=== PATIENT | male | born 1960 | race Caucasian/White ===

== ENCOUNTER 2025-02-18 15:36 | Emergency (ER) | payer OTHER, SELFPAY ==
[2025-02-18] VITALS (13 sets, daily range): BP systolic 143–177; BP diastolic 85–109; PULSE 75–92; RESP 10–20; TEMP 36.7; O2SAT 94–98; BMI 27.3
--- NOTE | 2025-02-18 15:58 | DI.CT.S_ITS ---
PROCEDURE: CT ANGIO HEAD AND NECK INDICATIONS: sudden onset dizzy TECHNIQUE: After the administration of intravenous contrast, 1 mm thick sections acquired from the aortic arch through the [place] of [place]. 3-dimensional onllhih-mjaqfkgdd-gpffrwfgte (MIP) and/or volume rendering reformats were acquired of the central intracranial vasculature and neck separately. For radiation dose reduction, the following was used: automated exposure control, adjustment of mA and/or kV according to patient size. COMPARISON: [facility], CT, CT HEAD/BRAIN WO [facility], 02/18/2025, 16:16. FINDINGS: Image quality: Diagnostic. Cerebral CT Angiogram: Internal carotid arteries: No acute findings. Intracranial ICA are patent with no significant stenosis. No occlusion. No aneurysm. Anterior cerebral arteries: Unremarkable. No significant stenosis. No occlusion. No aneurysm. Middle cerebral arteries: Unremarkable. No significant stenosis. No occlusion. No aneurysm. Posterior cerebral arteries: Unremarkable. No significant stenosis. No occlusion. No aneurysm. Basilar artery: Unremarkable. No significant stenosis. No occlusion. No aneurysm. Vertebral arteries: Unremarkable as visualized. Slight right vertebral artery. Dural venous sinuses: Unremarkable given phase of enhancement. Other: Arterial phase appearance of the brain parenchyma is unremarkable. Neck CT Angiogram: Internal carotid arteries: Unremarkable. No significant stenosis. No dissection or occlusion. Common carotid arteries: Unremarkable. No significant stenosis. No dissection or occlusion. External carotid arteries: Unremarkable. No occlusion. Vertebral arteries: Unremarkable. No significant stenosis. No dissection or occlusion. Aortic Arch and Mediastinum: Partially visualized aortic arch unremarkable without evidence of aneurysm. Origins of the great vessels unremarkable. Other: Arterial phase soft tissues of the neck and chest are unremarkable. IMPRESSION: No significant intracranial arterial abnormality is seen. No significant abnormality is seen within the arteries of the neck. Any quantitative measurements of stenosis were performed using NASCET criteria. Dictated by: Sherrell Carney M.D. on 02/18/2025 at 16:53 Approved by: Sherrell Carney M.D. on 02/18/2025 at 16:54
--- NOTE | 2025-02-18 15:58 | DI.RAD.S_ITS ---
PROCEDURE: XR CHEST 1V INDICATIONS: Chest Pain TECHNIQUE: One view of the chest was acquired. COMPARISON: None. FINDINGS: Surgical changes and devices: None. Lungs and pleura: Lungs are clear. No pleural effusions or pneumothorax. Mediastinum: Mediastinal contours appear normal. Heart size is normal. Bones and chest wall: No suspicious bony lesions. Overlying soft tissues appear unremarkable. IMPRESSION: No acute pulmonary process. Dictated by: Sherrell Carney M.D. on 02/18/2025 at 16:48 Approved by: Sherrell Carney M.D. on 02/18/2025 at 16:48
--- NOTE | 2025-02-18 15:58 | DI.CT.S_ITS ---
PROCEDURE: CT HEAD/BRAIN WO CON INDICATIONS: sudden onset dizzy TECHNIQUE: Noncontrast 4.5 mm thick angled axial sections acquired from the foramen magnum to the vertex, with coronal and sagittal reformats. For radiation dose reduction, the following was used: automated exposure control, adjustment of mA and/or kV according to patient size. COMPARISON: [facility], CT, CT ANGIO HEAD AND NECK, 02/18/2025, 16:16. FINDINGS: Image quality: Diagnostic. CSF spaces: Basal cisterns are patent. No extra-axial fluid collections. Ventricles are normal in size and shape. Brain: No midline shift. No intracranial mass effect or hemorrhage. Gross- white matter interface is normal. Skull and face: Calvarium and visualized facial bones are intact, without suspicious lesions. Sinuses: Visualized sinuses and mastoids are clear. IMPRESSION: No acute intracranial pathology. Dictated by: Sherrell Carney M.D. on 02/18/2025 at 16:53 Approved by: Sherrell Carney M.D. on 02/18/2025 at 16:53
--- NOTE | 2025-02-18 15:58 | EKG_ITS ---
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
--- NOTE | 2025-02-18 16:12 | ED.NEUROSD ---
HPI - Neuro Symptoms/Deficit General Chief Complaint: Neuro Symptoms/Deficit Stated Complaint: Dizziness Time Seen by Provider: 02/18/25 15:46 Source: EMS Mode of arrival: EMS History of Present Illness HPI Narrative: 64-year-old gentleman history of CAD x1 stet, hx of occular stroke Sep 2024, hypertension, dyslipidemia, was at [place] taking photos at various points when he started to feel dizziness described as feeling off balance and tilted becoming nauseous breaking out in cold sweats and unable to drive or walk came in for further evaluation. Most of his symptoms have since resolved but he still has residual dizziness still described as tilted but not room sensation spinning. Denies headache, stiff, neck, rash, fever, body aches, sore throat, cough, chest pain, nausea, vomiting, diarrhea, UTI symptoms, or sick contacts. Other than what is stated 14 point review of system is negative. On Anticoagulants: No Related Data Allergies Allergy/AdvReac Type Severity Reaction Status Date / Time No Known Drug Allergies Allergy Verified 02/18/25 15:57 Review of Systems Review of Systems ROS Unobtainable: All systems reviewed & are unremarkable except as noted in HPI and below Hematologic/Lymphatic On Anticoagulants: No Patient History Social History Smoking Status: Never smoker Smoking Status: Never smoker Exam Narrative Exam Narrative: GENERAL: [64] year old patient appears stated age. Well-developed patient, in mild distress. HEAD: Atraumatic. Normocephalic. EYES: Pupils equal round and reactive. Extraocular motions intact. No scleral icterus. No injection or drainage. ENT: Nose without bleeding, purulent drainage. Throat without erythema, tonsillar hypertrophy or exudate. Airway patent. NECK: Trachea midline. Non tender CARDIOVASCULAR: Regular rate and rhythm without murmurs, gallops, or rubs. RESPIRATORY: Clear to auscultation. Breath sounds equal bilaterally. No wheezes, rales, or rhonchi. GASTROINTESTINAL: Abdomen soft, non-tender, nondistended. EXTREMITIES: No edema or joint tenderness. BACK: Nontender without deformity or crepitance. No flank tenderness. NEURO: AOx3. GCS 15 nonfocal neuro exam klwjee-az-tvsh opposite tzrb-fg-peiy rapid alternating movements negative pronator drift 5/5 upper and lower extremity SKIN: No rash or erythema of visible areas Initial Vital Signs Initial Vital Signs: Vital Signs Pulse Rate 86 02/18/25 15:49 Respiratory Rate 14 02/18/25 15:49 Blood Pressure 177/99 H 02/18/25 15:49 Pulse Oximetry 96 02/18/25 15:49 Oxygen Delivery Method Room Air 02/18/25 15:49 Course Orders Ordered: ED Orders 02/18/25 15:58 CT angio head and neck Stat CT head/brain wo con Stat XR chest 1V Stat EKG-12 Lead Stat 02/18/25 16:13 Complete Blood Count AUTO DIFF Stat Comprehensive Metabolic Panel Stat Lipase Stat Magnesium Stat NT-proBNP (BNP-Adult 18+) Stat PTT Partial Thromboplastin Armani Stat Prothrombin Time INR Stat Troponin & CK Cardiac Panel Stat 02/18/25 16:35 Urine Culture Stat Urine Microscopic Stat Discontinued Medications Aspirin (Aspirin 81 Mg Chew Tab) 324 mg PO NOW ONE Stop: 02/18/25 15:59 Vital Signs Vital signs: Vital Signs - 8 hr 02/18/25 15:49 02/18/25 16:02 02/18/25 16:04 Temperature 98.1 F Pulse Rate 86 Pulse Rate [Orthostatic Lying] 82 Pulse Rate [Orthostatic Sitting] 92 H Pulse Rate [Orthostatic Standing] 91 H Respiratory Rate 14 Blood Pressure 177/99 H Blood Pressure [Orthostatic Lying] 157/85 H Blood Pressure [Orthostatic Sitting] 165/102 H Blood Pressure [Orthostatic Standing] 153/98 H Pulse Oximetry 96 Oxygen Delivery Method Room Air MDM - Neuro Symptoms/Deficit Lab Data 02/18/25 16:13 02/18/25 16:13 Labs: Lab Results 02/18/25 02/18/25 Range/Units 16:13 16:35 WBC 12.3 H (4.5-11.0) X10^3/uL RBC 5.03 (4.5-5.9) X10^6/uL Hgb 15.9 (13.5-17.5) g/dL Hct 46.6 (41-53) % MCV 92.6 (80-100) fL MCH 31.6 (26-34) PG MCHC 34.1 (30-36) % RDW 13.3 (11.6-14.8) % Plt Count 152 (150-400) X10^3/uL Neut % (Auto) 84.2 H (50-75) % Lymph % (Auto) 9.7 L (25-40) % Hood % (Auto) 5.2 (3-14) % Eos % (Auto) 0.5 L (2-4) % Baso % (Auto) 0.4 (0-2) % Neut # (Auto) 92251 H (2702-5064) /uL Lymph # (Auto) 1200 (7283-2719) /uL Hood # (Auto) 600 (0-900) /uL Eos # (Auto) 100 (0-450) /uL Baso # (Auto) 0 (0-100) /uL PT 10.7 (9.4-12.5) SECONDS INR 0.9 (0.9-1.3) APTT 25 L (25.1-36.5) SECONDS Sodium 136 L (137-145) mmol/L Potassium 4.3 (3.4-5.1) mmol/L Chloride 102 (98-107) mmol/L Carbon Dioxide 25 (22-32) mmol/L BUN 20 (9-20) mg/dL Creatinine 0.97 (0.66-1.25) mg/dL Estimated GFR > 60 (>60) mL/min BUN/Creatinine Ratio 20.6 (6-22) Glucose 146 H (70-99) mg/dL Calcium 9.9 (8.4-10.2) mg/dL Magnesium 1.6 (1.6-2.3) mg/dL Total Bilirubin 0.8 (0.2-1.3) mg/dL AST 36 (17-59) IU/L ALT 40 (<50) IU/L Alkaline Phosphatase 66 (38-126) U/L Total Creatine Kinase 58 (55-170) U/L Troponin I < 0.012 (0.01-0.034) ng/mL NT-Pro-B Natriuret Pep 33 (<125) pg/mL Total Protein 7.3 (6.3-8.2) g/dL Albumin 4.5 (3.5-5.0) g/dL Globulin 2.8 (1.7-4.1) g/dL Albumin/Globulin Ratio 1.6 (1.0-2.8) Lipase 55 (23-300) U/L Urine RBC None seen (0-5/HPF) Urine WBC 0-1/hpf (0-5/HPF) Ur Squamous Epith Cells 0-1 /hpf (0-5/HPF) Urine Bacteria Occasional (0-1) (None) Vol Urine Centrifuged 10ml (spun) Urine Dip Bedside Urine Glucose Negative Bedside Urine Bilirubin - Negative Bedside Urine Ketone - Negative Urine Specific [place] 1.015 Bedside Urine Occult Blood - Negative Bedside Urine pH 6.0 Bedside Urine Protein ++ 100 Bedside Urine Urobilinogen - Negative Bedside Urine Nitrite - Negative Bedside Urine Leukocytes - Negative Esterase Imaging Data CT scan - head: Radiologist's Impression: [address] [address] [address] Scan Report Signed Patient: Montez Alexandra MR#: [id number] : 1960 Acct:[id number] Age/Sex: 64 / M Date of Service: 02/18/25 Loc: ED Accession Number: [id number] Procedure: CT head/brain wo con Ordering Provider: Franki Miramontes D.O. PROCEDURE: CT HEAD/BRAIN WO CON INDICATIONS: sudden onset dizzy TECHNIQUE: Noncontrast 4.5 mm thick angled axial sections acquired from the foramen magnum to the vertex, with coronal and sagittal reformats. For radiation dose reduction, the following was used: automated exposure control, adjustment of mA and/or kV according to patient size. COMPARISON: [facility], CT, CT ANGIO HEAD AND NECK, 02/18/2025, 16:16. FINDINGS: Image quality: Diagnostic. CSF spaces: Basal cisterns are patent. No extra-axial fluid collections. Ventricles are normal in size and shape. Brain: No midline shift. No intracranial mass effect or hemorrhage. Gross-white matter interface is normal. Skull and face: Calvarium and visualized facial bones are intact, without suspicious lesions. Sinuses: Visualized sinuses and mastoids are clear. IMPRESSION: No acute intracranial pathology. Dictated by: Sherrell Carney M.D. on 02/18/2025 at 16:53 Approved by: Sherrell Carney M.D. on 02/18/2025 at 16:53 Extremity x-ray #1: Radiologist's Impression: [address] [address] [address] Scan Report Signed Patient: Montez Alexandra MR#: [id number] : 1960 Acct:[id number] Age/Sex: 64 / M Date of Service: 02/18/25 Loc: ED Accession Number: [id number] Procedure: CT angio head and neck Ordering Provider: Franki Miramontes D.O. PROCEDURE: CT ANGIO HEAD AND NECK INDICATIONS: sudden onset dizzy TECHNIQUE: After the administration of intravenous contrast, 1 mm thick sections acquired from the aortic arch through the [place] of [place]. 3-dimensional ooxxcgx-pqiluotrm-brzzrcfjwh (MIP) and/or volume rendering reformats were acquired of the central intracranial vasculature and neck separately. For radiation dose reduction, the following was used: automated exposure control, adjustment of mA and/or kV according to patient size. COMPARISON: [facility], CT, CT HEAD/BRAIN WO CON, 02/18/2025, 16:16. FINDINGS: Image quality: Diagnostic. Cerebral CT Angiogram: Internal carotid arteries: No acute findings. Intracranial ICA are patent with no significant stenosis. No occlusion. No aneurysm. Anterior cerebral arteries: Unremarkable. No significant stenosis. No occlusion. No aneurysm. Middle cerebral arteries: Unremarkable. No significant stenosis. No occlusion. No aneurysm. Posterior cerebral arteries: Unremarkable. No significant stenosis. No occlusion. No aneurysm. Basilar artery: Unremarkable. No significant stenosis. No occlusion. No aneurysm. Vertebral arteries: Unremarkable as visualized. Slight right vertebral artery. Dural venous sinuses: Unremarkable given phase of enhancement. Other: Arterial phase appearance of the brain parenchyma is unremarkable. Neck CT Angiogram: Internal carotid arteries: Unremarkable. No significant stenosis. No dissection or occlusion. Common carotid arteries: Unremarkable. No significant stenosis. No dissection or occlusion. External carotid arteries: Unremarkable. No occlusion. Vertebral arteries: Unremarkable. No significant stenosis. No dissection or occlusion. Aortic Arch and Mediastinum: Partially visualized aortic arch unremarkable without evidence of aneurysm. Origins of the great vessels unremarkable. Other: Arterial phase soft tissues of the neck and chest are unremarkable. IMPRESSION: No significant intracranial arterial abnormality is seen. No significant abnormality is seen within the arteries of the neck. Any quantitative measurements of stenosis were performed using NASCET criteria. Chest x-ray: Radiologist's Impression: [address] [address] XRay Report Signed Patient: Montez Alexandra MR#: [id number] : 1960 Acct:[id number] Age/Sex: 64 / M Date of Service: 02/18/25 Loc: ED Accession Number: [id number] Procedure: XR chest 1V Ordering Provider: Franki Miramontes D.O. PROCEDURE: XR CHEST 1V INDICATIONS: Chest Pain TECHNIQUE: One view of the chest was acquired. COMPARISON: None. FINDINGS: Surgical changes and devices: None. Lungs and pleura: Lungs are clear. No pleural effusions or pneumothorax. Mediastinum: Mediastinal contours appear normal. Heart size is normal. Bones and chest wall: No suspicious bony lesions. Overlying soft tissues appear unremarkable. IMPRESSION: No acute pulmonary process. MDM Narrative Medical decision making narrative: All lab work, vital signs, nurse triage note, medication list, previous ER visits, and all imaging studies reviewed. White count at 12.3 hemoglobin 15 point platelet 152 sodium 136 glucose 146 troponin less than 0.012 BNP 33 urine was normal. Chest x-ray showed no acute process. CT head and CTA head and neck showed no acute process. GCS 15 nonfocal neuro exam alert and oriented x4. Patient feels improved on reexamination. Differential diagnosis includes CVA subdural subarachnoid hemorrhage brain and or aneurysm pneumonia sepsis dehydration electrolyte derangement STEMI NSTEMI Meniere's disease viral. Patient will follow up back in [place] his PCP as he is visiting from out of town. Discharge Plan Departure Patient Disposition: Home Clinical Impression: Dizziness Instructions: DI for Dizziness-Nonvertigo Activity Restrictions/Additional Instructions: Return with new or worsening symptoms. Follow up with PCP in [place] for follow up care. Stand Alone Forms: Patient Portal/API
[2025-02-18 16:19] LABS: Add Manual Diff / Slide Review NO; Basophils Absolute Auto 0 /uL (0-100); Basophils Percent Auto 0.4 % (0-2); Eosinophils Absolute Auto 100 /uL (0-450); Eosinophils Percent Auto 0.5 % (2-4); Hematocrit 46.6 % (41-53); Hemoglobin 15.9 g/dL (13.5-17.5); Lymphocytes Absolute Auto 1200 /uL (1100-4500); Lymphocytes Percent Auto 9.7 % (25-40); Mean Corpuscular HGB Conc 34.1 % (30-36); Mean Corpuscular Hemoglobin 31.6 PG (26-34); Mean Corpuscular Volume 92.6 fL (80-100); Monocytes Absolute Auto 600 /uL (0-900); Monocytes Percent Auto 5.2 % (3-14); Neutrophils Absolute Auto 10400 /uL (1500-7000); Neutrophils Percent Auto 84.2 % (50-75); Platelet Count 152 X10^3/uL (150-400); Red Blood Cell Count 5.03 X10^6/uL (4.5-5.9); Red Cell Distribution Width 13.3 % (11.6-14.8); White Blood Cell Count 12.3 X10^3/uL (4.5-11.0)
[2025-02-18 16:33] LABS: Alanine Aminotransferase 40 IU/L (<50); Albumin 4.5 g/dL (3.5-5.0); Albumin Globulin Ratio 1.6 (1.0-2.8); Alkaline Phosphatase 66 U/L (38-126); Aspartate Aminotransferase 36 IU/L (17-59); BUN Creatinine Ratio 20.6 (6-22); Bilirubin Total 0.8 mg/dL (0.2-1.3); Blood Urea Nitrogen 20 mg/dL (9-20); Calcium 9.9 mg/dL (8.4-10.2); Carbon Dioxide 25 mmol/L (22-32); Chloride 102 mmol/L (98-107); Creatine Kinase 58 U/L (55-170); Estimated Glomerular Filt Rate > 60 mL/min (>60); Globulin 2.8 g/dL (1.7-4.1); Glucose 146 mg/dL (70-99); HEMOLYSIS 20 (0-50); Lipase 55 U/L (23-300); Magnesium 1.6 mg/dL (1.6-2.3); Potassium 4.3 mmol/L (3.4-5.1); Sodium 136 mmol/L (137-145); Total Protein 7.3 g/dL (6.3-8.2)
[2025-02-18 16:37] LABS: INR 0.9 (0.9-1.3); Prothrombin Time 10.7 SECONDS (9.4-12.5)
[2025-02-18 16:40] LABS: PTT Partial Thromboplastin Tim 25 SECONDS (25.1-36.5)
[2025-02-18 16:45] LABS: NT-proBNP (BNP-Adult 18+) 33 pg/mL (<125); Troponin I < 0.012 ng/mL (0.01-0.034)
[2025-02-18 16:58] LABS: Bacteria Urine Occasional (0-1); RBC Urine None Seen (0-5/HPF); Squamous Epithelial Cell Urine 0-1 /HPF (0-5/HPF); Urine Volume 10mL (spun); WBC Urine 0-1/HPF (0-5/HPF)
== END 2025-02-18 18:13 | disposition home or self-care (01) ==
PROVIDERS: Emergency Provider Family Medicine
DX: R42 Dizziness and giddiness (principal); I25.10 Atherosclerotic heart disease of native coronary artery without angina pectoris; Z95.5 Presence of coronary angioplasty implant and graft; Z86.73 Personal history of transient ischemic attack (TIA), and cerebral infarction without residual deficits
CPT/HCPCS: 70450; 70496; 70498; 71045; 80053; 81003; 81015; 82550; 83690; 83735; 83880; 84484; 85025; 85610; 85730; 87086; 93005; 93010; 99283; 99284; Q9967